=== PATIENT | female | born 1985 | race Caucasian/White ===

== ENCOUNTER 2019-04-29 10:22 | Outpatient (CLI) | payer OTHER ==
--- NOTE | 2019-04-29 13:35 | RAD ---
FRONTAL AND LATERAL IMAGING THORACIC SPINE: 04/29/19 HISTORY: Pain. FINDINGS: Thoracic pedicles appear intact on the frontal imaging. There is mild multilevel disc space narrowing and anterior osteophyte formation within the mid/lower thoracic spine. No acute fracture or dislocat ion. No anterolisthesis or retrolisthesis. IMPRESSION: No acute findings. POS: [facility]
== END 2019-04-29 10:23 | disposition home or self-care (01) ==
LOC: RAD-FRANK 10:22
PROVIDERS: ATTEND Nurse Practitioner Family
DX: M54.6 Pain in thoracic spine (principal)
CPT/HCPCS: 72072

== ENCOUNTER 2020-02-05 15:22 | Outpatient (CLI) | payer BC ==
--- NOTE | 2020-02-05 18:38 | CT ---
EXAM: BRAIN CT WITHOUT IV CONTRAST: 02/05/20 HISTORY: Ataxia, blurred vision, right parietotemporal headaches. FINDINGS: No focal mass or midline shift. No intra or extra-axial hemorrhage. Sinuses and mastoids are clear. IMPRESSION: No significant acute intrathoracic disease. POS: [facility]
== END 2020-02-05 15:23 | disposition home or self-care (01) ==
LOC: BICCT 15:22
PROVIDERS: ATTEND Nurse Practitioner Family
DX: H53.8 Other visual disturbances (principal); R27.0 Ataxia, unspecified
CPT/HCPCS: 70450

== ENCOUNTER 2020-12-16 08:43 | Outpatient (CLI) | payer BC | END 2020-12-16 08:44 | disposition home or self-care (01) | LOC: BICMAMMO 08:43 | PROVIDERS: ATTEND Nurse Practitioner Family | DX: Z12.31 Encounter for screening mammogram for malignant neoplasm of breast (principal); N63.12 Unspecified lump in the right breast, upper inner quadrant | CPT/HCPCS: 77063; 77067 ==

== ENCOUNTER 2020-12-21 09:01 | Outpatient (CLI) | payer BC | END 2020-12-21 09:02 | disposition home or self-care (01) | LOC: BICMAMMO 09:01 | PROVIDERS: ATTEND Nurse Practitioner Family | DX: N63.12 Unspecified lump in the right breast, upper inner quadrant (principal) | CPT/HCPCS: G0279 ==

== ENCOUNTER 2022-08-27 09:52 | Outpatient (CLI) | payer BC | END 2022-08-27 09:53 | disposition home or self-care (01) | LOC: RAD-FRANK 09:52 | PROVIDERS: ATTEND Internal Medicine Rheumatology | DX: M54.89 Other dorsalgia (principal) | CPT/HCPCS: 72202 ==

== ENCOUNTER 2024-08-20 08:13 | Outpatient (CLI) | payer OTHER | END 2024-08-20 08:14 | disposition home or self-care (01) | LOC: BICMAMMO 08:13 | PROVIDERS: ATTEND Nurse Practitioner Family | DX: N63.10 Unspecified lump in the right breast, unspecified quadrant (principal) | CPT/HCPCS: 77066; G0279 ==